=== PATIENT | male | born 1955 | race Caucasian/White ===

== ENCOUNTER 2024-10-18 00:57 | Emergency (ER) | payer OTHER | END 2024-10-18 02:11 | disposition home or self-care (01) | LOC: NAV ERS 00:57 | DX: K94.20 Gastrostomy complication, unspecified (principal); I10 Essential (primary) hypertension | CPT/HCPCS: 43762; 74018 ==

== ENCOUNTER 2024-11-07 04:01 | Emergency (ER) | payer OTHER | END 2024-11-07 12:42 | LOC: NAV ERS 04:01 | DX: K94.23 Gastrostomy malfunction (principal); I10 Essential (primary) hypertension; Z87.891 Personal history of nicotine dependence | CPT/HCPCS: 43762; 74018 ==

== ENCOUNTER 2025-07-27 01:15 | Emergency (ER) | payer OTHER | END 2025-07-27 03:15 | LOC: NAV ERS 01:15 → EEVIPCON 01:15 → NAV ERS 03:15 | DX: K94.23 Gastrostomy malfunction (principal); I48.91 Unspecified atrial fibrillation; J44.9 Chronic obstructive pulmonary disease, unspecified; I10 Essential (primary) hypertension; Z87.891 Personal history of nicotine dependence | CPT/HCPCS: 99282 ==